=== PATIENT | male | born 2000 | race Caucasian/White ===

== ENCOUNTER 2018-04-02 11:58 | Emergency (ER) | payer MEDICAID ==
[2018-04-02] MEDS: IBUPROFEN 600 MG TAB PO (14:41)
== END 2018-04-02 16:05 | disposition home or self-care (01) ==
LOC: FTE 11:58
DX: N50.811 Right testicular pain (principal); N43.3 Hydrocele, unspecified
CPT/HCPCS: 76870; 99284-25